=== PATIENT | male | born 1995 | race Caucasian/White ===

== ENCOUNTER 2022-09-14 14:25 | Outpatient (CLI) | payer SELFPAY | END 2022-09-14 14:26 | disposition home or self-care (01) | LOC: LKVREF 14:26 | PROVIDERS: Visit Provider Family Medicine | DX: Z00.00 Encounter for general adult medical examination without abnormal findings (principal); R10.30 Lower abdominal pain, unspecified | CPT/HCPCS: 82465 ==

== ENCOUNTER 2022-10-08 14:45 | Outpatient (CLI) | payer OTHER, SELFPAY | END 2022-10-08 14:46 | disposition home or self-care (01) | LOC: RAD 14:46 | PROVIDERS: PCP Family Medicine; Visit Provider Family Medicine | DX: R01.1 Cardiac murmur, unspecified (principal) | CPT/HCPCS: 93306 ==